=== PATIENT | female | born 1995 | race Caucasian/White ===

== ENCOUNTER 2018-02-10 07:02 | Observation (INO) | payer OTHER ==
[~2018-02-10 07:02] MED LIST: CEFAZOLIN 1 GM INJ; DEXAMETHASONE 4 MG/ML 1 ML INJ; FENTAnyl 50 MCG/ML VIAL; GLYCOPYRROLATE 0.4 MG INJ; LIDOCAINE 2% (SDV) 5 ML INJ; MIDAZOLAM 1 MG/ML 2 ML INJ; NALOXONE (0.4 MG/ML) INJ IV; NEOSTIGMINE 3 MG/3 ML SYRINGE; ONDANSETRON 4 MG INJ; PROPOFOL 20 ML; ROCURONIUM 50 MG INJ; ROPIVACAINE 0.5 % 30 ML VIAL
[2018-02-10] MEDS ORDERED: MIDAZOLAM 1 MG/ML 2 ML INJ (08:17)
[2018-02-10] MEDS: POLYMYXIN/BACITRACIN 1L IRRIG (10:28)
[2018-02-10] MEDS: ROPIVACAINE 0.5 % 30 ML VIAL (10:28)
[2018-02-10] MEDS ORDERED: DIPHENHYDRAMINE 50 MG INJ (12:45)
[2018-02-10] MEDS ORDERED: FENTAnyl 50 MCG/ML VIAL (12:51)
[2018-02-10] MEDS: BACITRACIN/POLYMYXIN 28.35 GM OINT TOP (13:07)
[2018-02-10] MEDS: morphine 2 MG INJ IV (13:11)
[2018-02-10] MEDS: KETOROLAC 30 MG INJ IV (13:12)
[2018-02-10] MEDS ORDERED: ONDANSETRON 4 MG INJ IV ×2 (13:30→17:30)
[2018-02-10] MEDS ORDERED: OXYCODONE/ACETAMINOPHEN (5/325) TAB PO ×2 (13:30)
[2018-02-10] MEDS: HYDROmorphONE 1 MG/5 ML IV SYRINGE IV ×4 (13:30→15:23)
[2018-02-10] MEDS ORDERED: HYDROmorphONE 1 MG/5 ML IV SYRINGE IV (13:30)
[2018-02-10] MEDS ORDERED: FENTAnyl 50 MCG/ML VIAL IV ×2 (13:30)
[2018-02-10] MEDS ORDERED: LABETALOL HCL 20MG INJ (14:20)
[2018-02-10] MEDS: LABETALOL HCL 20MG INJ IV ×4 (14:30→15:26)
[2018-02-10] MEDS: SOD CHLORIDE 0.45% 1,000 ML IV (17:02)
[2018-02-10] MEDS ORDERED: hydrALAzine 20 MG INJ IV (17:30)
[2018-02-10] MEDS ORDERED: LORAZEPAM 0.5 MG TAB PO (17:30)
[2018-02-10] MEDS ORDERED: CEFAZOLIN 1 GM INJ IV (17:30)
[2018-02-10] MEDS ORDERED: NACL 0.9% 3 ML SYG IV (17:30)
[2018-02-10] MEDS ORDERED: ACETAMINOPHEN 325 MG TAB PO (17:30)
[2018-02-10] MEDS ORDERED: NITROGLYCERIN (SL) 0.4 MG TAB SL (17:30)
[2018-02-10] MEDS ORDERED: NA PHOSPHATE/BIPHOS 133 ML ENEMA PR (17:30)
[2018-02-10] MEDS ORDERED: ALBUTEROL/IPRATROPIUM (NEB) 3 ML AMP HHN (17:30)
[2018-02-10] MEDS ORDERED: morphine 2 MG INJ IV (17:30)
[2018-02-10 18:29] LABS: FREE T4 (FREE THYROXINE) 1.26 ng/dl (0.79-2.35)
[2018-02-10 18:34] LABS: TROPONIN-I < 0.010 ng/ml (0.000-0.120)
[2018-02-10] MEDS: oxyCODONE 5 MG TAB PO ×2 (18:56→22:09)
[2018-02-10] MEDS: CEFAZOLIN 2 GM/50 ML (PMX) 50 ML IVPB (20:03)
[2018-02-10] MEDS: HYDROmorphONE 1 MG/ML SYG IV (22:10)
[2018-02-10] MEDS: ONDANSETRON 4 MG INJ IV (23:21)
[2018-02-11] MEDS: oxyCODONE 5 MG TAB PO ×6 (01:53→20:29)
[2018-02-11] MEDS: CEFAZOLIN 2 GM/50 ML (PMX) 50 ML IVPB ×3 (03:00→17:18)
[2018-02-11] MEDS: SOD CHLORIDE 0.45% 1,000 ML IV ×3 (05:51→20:24)
[2018-02-11 06:22] LABS: ADD MAN DIFF? NO
[2018-02-11 06:28] LABS: WHITE BLOOD COUNT 14.1 10^3/ul (4.8-10.8)
[2018-02-11 06:28] LABS: BASOPHILS % 0.2 % (0.0-2.0); EOSINOPHILS % 0.1 % (0.0-7.0); HEMATOCRIT 36.1 % (37.0-47.0); HEMOGLOBIN 11.9 g/dl (12.0-16.0); LYMPHOCYTES # 2.9 10^3/ul (0.8-2.9); LYMPHOCYTES % 20.2 % (15.0-51.0); MEAN CORPUSCULAR HEMOGLOBIN 29.8 pg (29.0-33.0); MEAN CORPUSCULAR VOLUME 90.3 fl (82.0-101.0); MEAN PLATELET VOLUME 9.5 fl (7.4-10.4); MONOCYTE # 1.4 10^3/ul (0.3-0.9); NEUTROPHIL # 9.8 10^3/ul (1.6-7.5); NEUTROPHILS % 69.1 % (39.0-77.0); PLATELET COUNT 270 10^3/UL (140-415); RED CELL DISTRIBUTION WIDTH 12.6 % (11.5-14.5)
[2018-02-11] MEDS: HYDROmorphONE 1 MG/ML SYG IV ×3 (06:35→21:38)
[2018-02-11 07:02] LABS: ANION GAP 12 (8-16); BLOOD UREA NITROGEN 7 mg/dl (7-20); CALCIUM 8.8 mg/dl (8.4-10.2); CARBON DIOXIDE 28 mmol/L (21-31); CHLORIDE 103 mmol/L (97-110); CREATININE 0.62 mg/dl (0.44-1.00); GLUCOSE 117 mg/dl (70-220); MAGNESIUM 2.1 mg/dl (1.7-2.5); PHOSPHORUS 3.7 mg/dl (2.5-4.9); POTASSIUM 4.3 mmol/L (3.5-5.1); SODIUM 139 mmol/L (135-144)
[2018-02-11 07:04] LABS: CHOLESTEROL 190 mg/dl (100-200)
[2018-02-11 07:04] LABS: CHOL/HDL RATIO 4.7 RATIO; HDL CHOLESTEROL 40 mg/dl (33-83); LDL CHOLESTEROL,CALCULATED 127 mg/dl; TRIGLYCERIDES 113 mg/dl (0-149)
[2018-02-11 07:23] LABS: HEMOGLOBIN A1C 5.4 % (0-5.9)
[2018-02-11 07:28] LABS: THYROID STIMULATING HORMONE 0.357 MIU/L (0.465-4.680)
[2018-02-11] MEDS: PANTOPRAZOLE (EC) 40 MG TAB PO (09:22)
[2018-02-11] MEDS: HYDROCODONE/APAP (5/325) TAB PO (09:22)
[2018-02-11] MEDS: RIVAROXABAN 10 MG TABLET PO (17:18)
[2018-02-11] MEDS: DIPHENHYDRAMINE 25 MG CAP PO (21:38)
[2018-02-11] MEDS: ONDANSETRON 4 MG INJ IV (22:11)
[2018-02-12] MEDS: CEFAZOLIN 2 GM/50 ML (PMX) 50 ML IVPB ×2 (01:08→09:56)
[2018-02-12] MEDS: oxyCODONE 5 MG TAB PO ×5 (01:09→17:00)
[2018-02-12 07:20] LABS: WHITE BLOOD COUNT 11.7 10^3/ul (4.8-10.8)
[2018-02-12 07:20] LABS: HEMATOCRIT 37.5 % (37.0-47.0); HEMOGLOBIN 12.2 g/dl (12.0-16.0); MEAN CORPUSCULAR HEMOGLOBIN 29.9 pg (29.0-33.0); MEAN CORPUSCULAR HGB CONC 32.5 g/dl (32.0-37.0); MEAN CORPUSCULAR VOLUME 91.9 fl (82.0-101.0); MEAN PLATELET VOLUME 9.5 fl (7.4-10.4); PLATELET COUNT 259 10^3/UL (140-415); RED BLOOD COUNT 4.08 10^6/ul (4.20-5.40); RED CELL DISTRIBUTION WIDTH 12.9 % (11.5-14.5)
[2018-02-12 07:27] LABS: POSITIVE DIFF @See below
[2018-02-12 07:28] LABS: ADD MAN DIFF? YES
[2018-02-12 07:47] LABS: ANION GAP 11 (8-16); BLOOD UREA NITROGEN 10 mg/dl (7-20); CALCIUM 8.6 mg/dl (8.4-10.2); CARBON DIOXIDE 29 mmol/L (21-31); CHLORIDE 104 mmol/L (97-110); CREATININE 0.69 mg/dl (0.44-1.00); GLUCOSE 85 mg/dl (70-220); POTASSIUM 4.4 mmol/L (3.5-5.1); SODIUM 140 mmol/L (135-144)
[2018-02-12] MEDS: PANTOPRAZOLE (EC) 40 MG TAB PO (08:12)
[2018-02-12] MEDS: SOD CHLORIDE 0.45% 1,000 ML IV ×2 (09:02→10:40)
[2018-02-12 09:43] LABS: ANISOCYTOSIS 2+ (0-0); LYMPHOCYTES #M 3.8 10^3/ul (0.8-2.9); LYMPHOCYTES % (M) 33 % (15-51); MICROCYTOSIS 1+ (0-0); MONOCYTE #M 0.9 10^3/ul (0.3-0.9); MONOCYTES % (M) 8 % (0-11); PLATELET ESTIMATE NORMAL; POLYCHROMASIA 3+ (0-0); SEGMENTED NEUTROPHILS (M) % 59 % (39-77); SMUDGE%M 2 % (0-0)
[2018-02-12] MEDS: MAGNESIUM HYDROXIDE 30ML CUP PO (12:17)
[2018-02-12] MEDS: DOCUSATE SODIUM 100 MG CAP PO (12:17)
[2018-02-12] MEDS: RIVAROXABAN 10 MG TABLET PO (17:00)
== END 2018-02-12 17:26 | disposition home or self-care (01) ==
LOC: SDS 07:02 → REC 17:05 → TEL 17:30
DX: S83.511A Sprain of anterior cruciate ligament of right knee, initial encounter (principal); S83.241A Other tear of medial meniscus, current injury, right knee, initial encounter; Y93.79 Activity, other specified sports and athletics; F41.9 Anxiety disorder, unspecified; Z88.2 Allergy status to sulfonamides; X58.XXXA Exposure to other specified factors, initial encounter
CPT/HCPCS: 29882; 80048; 80061; 82306; 83036; 83735; 84100; 84439; 84443; 84484; 84703; 85025; 93005; 97116; 97161; 99217; G0378

== ENCOUNTER 2018-08-20 12:30 | Emergency (ER) | payer OTHER | END 2018-08-20 15:24 | disposition home or self-care (01) | LOC: FTE 12:30 | DX: S90.112A Contusion of left great toe without damage to nail, initial encounter (principal); W01.0XXA Fall on same level from slipping, tripping and stumbling without subsequent striking against object, initial encounter; Y92.9 Unspecified place or not applicable; Z79.82 Long term (current) use of aspirin | CPT/HCPCS: 73660; 99283-25 ==

== ENCOUNTER 2018-09-02 22:02 | Emergency (ER) | payer OTHER ==
[2018-09-03] MEDS: HYDROCODONE/APAP (5/325) TAB PO (02:07)
[2018-09-03] MEDS: ONDANSETRON (ODT) 4 MG TAB ODT (02:07)
[2018-09-03] MEDS: FAMOTIDINE 20 MG TAB PO (02:07)
[2018-09-03 02:19] LABS: ADD MAN DIFF? NO
[2018-09-03 02:22] LABS: WHITE BLOOD COUNT 14.5 10^3/ul (4.8-10.8)
[2018-09-03 02:22] LABS: BASOPHILS % 0.3 % (0.0-2.0); EOSINOPHILS # 0.1 10^3/ul (0.0-0.5); EOSINOPHILS % 0.8 % (0.0-7.0); HEMATOCRIT 40.4 % (37.0-47.0); HEMOGLOBIN 13.5 g/dl (12.0-16.0); LYMPHOCYTES # 3.7 10^3/ul (0.8-2.9); LYMPHOCYTES % 25.8 % (15.0-51.0); MEAN CORPUSCULAR HEMOGLOBIN 29.2 pg (29.0-33.0); MEAN CORPUSCULAR HGB CONC 33.4 g/dl (32.0-37.0); MEAN CORPUSCULAR VOLUME 87.4 fl (82.0-101.0); MEAN PLATELET VOLUME 9.3 fl (7.4-10.4); MONOCYTE # 0.7 10^3/ul (0.3-0.9); MONOCYTES % 5.1 % (0.0-11.0); NEUTROPHIL # 9.8 10^3/ul (1.6-7.5); NEUTROPHILS % 67.7 % (39.0-77.0); PLATELET COUNT 307 10^3/UL (140-415); RED BLOOD COUNT 4.62 10^6/ul (4.20-5.40); RED CELL DISTRIBUTION WIDTH 12.5 % (11.5-14.5)
[2018-09-03 02:40] LABS: ALANINE AMINOTRANSFERASE 30 IU/L (13-69); ALBUMIN 4.9 g/dl (3.3-4.9); ALKALINE PHOSPHATASE 89 IU/L (42-121); ANION GAP 12 (5-13); ASPARTATE AMINO TRANSFERASE 28 IU/L (15-46); BILIRUBIN,INDIRECT 0.1 mg/dl (0-1.1); BILIRUBIN,TOTAL 0.1 mg/dl (0.2-1.3); BLOOD UREA NITROGEN 15 mg/dl (7-20); CALCIUM 9.9 mg/dl (8.4-10.2); CARBON DIOXIDE 26 mmol/L (21-31); CHLORIDE 102 mmol/L (97-110); CREATININE 0.58 mg/dl (0.44-1.00); Estimated GFR > 60 mL/min (>60); GLUCOSE 102 mg/dl (70-220); LIPASE 182 U/L (23-300); POTASSIUM 3.9 mmol/L (3.5-5.1); SODIUM 140 mmol/L (135-144); TOTAL PROTEIN 8.4 g/dl (6.1-8.1)
[2018-09-03 02:53] LABS: ADD UMIC YES; UR ASCORBIC ACID NEGATIVE (NEGATIVE); UR BACTERIA FEW /HPF (NONE SEEN); UR BILIRUBIN (Dip) NEGATIVE (NEGATIVE); UR BLOOD (Dip) NEGATIVE (NEGATIVE); UR CLARITY SLIGHTLY CLOUDY (CLEAR); UR COLOR YELLOW (YELLOW); UR GLUCOSE (Dip) NEGATIVE (NEGATIVE); UR KETONES (Dip) NEGATIVE (NEGATIVE); UR LEUKOCYTE ESTERASE (Dip) TRACE Leu/ul (NEGATIVE); UR MUCUS FEW /HPF (NONE SEEN); UR NITRITE (Dip) NEGATIVE (NEGATIVE); UR RBC 2 /HPF (0-5); UR SQUAMOUS EPITHELIAL CELL FEW /HPF (FEW); UR TOTAL PROTEIN (Dip) NEGATIVE (NEGATIVE); UR UROBILINOGEN (Dip) 1+ mg/dL (NEGATIVE); UR WBC 6 /HPF (0-5)
== END 2018-09-03 03:10 | disposition home or self-care (01) ==
LOC: FTE 22:02
DX: K80.50 Calculus of bile duct without cholangitis or cholecystitis without obstruction (principal); Z79.82 Long term (current) use of aspirin
CPT/HCPCS: 36415; 76705; 80053; 81001; 81025; 83690; 85025; 99284-25